=== PATIENT | female | born 1990 | race Caucasian/White ===

== ENCOUNTER → 2016-09-22 | Outpatient (CLI) | payer OTHER ==
[~2016-09-22] MED LIST: MACROBID 1100 MG/CAP PO; MEDROL 4MG DOSPA4 MG PO; NO HOME MEDICATIONS; PRENATAL1 TA1 PO
== END ==
LOC: COL.RAD 14:00
DX: R09.1 Pleurisy (principal)

== ENCOUNTER → 2016-10-18 | Outpatient (CLI) | payer OTHER | LOC: MC.RAD 14:00 | DX: N64.9 Disorder of breast, unspecified (principal); N64.52 Nipple discharge ==

== ENCOUNTER → 2017-01-31 | Outpatient (CLI) | payer OTHER | LOC: MC.RAD 07:29 | DX: N63.20 Unspecified lump in the left breast, unspecified quadrant (principal); N64.59 Other signs and symptoms in breast ==

== ENCOUNTER → 2017-06-15 | Outpatient (CLI) | payer SELFPAY | LOC: COL.RAD 08:40 | DX: R10.13 Epigastric pain (principal); R10.31 Right lower quadrant pain ==